=== PATIENT | female | born 1935 | race Caucasian/White ===

== ENCOUNTER 2018-03-09 13:03 | Emergency (ER) | payer OTHER ==
--- OUTSIDE RECORDS SUMMARY | 2018-03-09 13:06 | XMS REPORT | Clinical Summary ---
:1935 Author Organization [facility] Address [address] [place] [address] Care Team Providers Name Role Phone Ana Khan MD Primary Care Provider Allergies Active Allergy Reactions Severity Noted Date Comments Meperidine Other (See Comments) 08/03/2015 HARD TO REMEMBER Does not work Promethazine Other (See Comments) 09/06/2016 shaking Current Medications Prescription Sig. Disp. Refills Start Date End Date Status cholecalciferol, Take by mouth. Active vitamin D3, (VITAMIN D3) 2,000 unit capsule capsule aspirin (ECOTRIN) 81 Take 81 mg by Active MG enteric coated mouth. tablet acetaminophen Take 500 mg by Active (TYLENOL) 500 MG mouth every 6 tablet (six) hours as needed for mild pain. diclofenac (VOLTAREN) Apply 1 Tube 3 05/16/2017 Active 1 % gel topically 4 (four) times a day. Apply 2 Gm to thumb omeprazole (PriLOSEC) Take 20 mg by Active 20 MG capsule mouth daily. chlorpheniramine Take 4 mg by Active (WAL-FINATE) 4 mg mouth every 6 tablet (six) hours as needed for allergies. calcium Take 1 tablet 60 tablet 11 09/19/2017 Active carbonate-vitamin D3 by mouth 2 8 (OYSTER SHELL (two) times a CALCIUM-VIT D3) 500 day with mg-200 unit per meals. tablet furosemide (LASIX) 20 TAKE ONE 60 tablet 2 10/29/2017 Active mg tablet TABLET BY MOUTH DAILY valsartan (DIOVAN) TAKE ONE 90 tablet 3 02/06/2018 Active 160 MG tablet TABLET BY MOUTH DAILY dicyclomine (BENTYL) Take 10 mg by Discontinued 10 MG capsule mouth 4 (four) 8 times a day. furosemide (LASIX) 20 TAKE ONE 60 tablet 3 10/20/2016 Discontinued mg tablet TABLET BY 8 MOUTH DAILY valsartan (DIOVAN) Take 1 tablet 90 tablet 3 02/12/2017 Discontinued 160 MG tablet (160 mg total) 8 by mouth daily. pravastatin Take 1 tablet 90 tablet 3 02/12/2017 Discontinued (PRAVACHOL) 20 MG (20 mg total) 8 tablet by mouth daily. POLYETHYLENE GLYCOL Take by mouth. Discontinued 3350 (MIRALAX ORAL) 8 flecainide (TAMBOCOR) Take 50 mg by Discontinued 50 MG tablet mouth 2 (two) 8 times a day. naproxen sodium Take 220 mg by Discontinued (ALEVE) 220 MG tablet mouth 2 (two) 8 times a day with meals. fluconazole Take 1 tablet 1 tablet 0 09/19/2017 (DIFLUCAN) 150 MG (150 mg total) 7 tablet by mouth once for 1 dose. alendronate (FOSAMAX) Take 1 tab PO 4 tablet 5 09/28/2017 Discontinued 70 MG tablet QAM with a 8 full glass of water on an empty stomach, do NOT take anything else by mouth or lie down for the next 30 min. amoxicillin-pot Take 1 tablet Discontinued clavulanate by mouth 2 8 (AUGMENTIN) 875-125 (two) times a mg per tablet day. GUAIFENESIN/PSEUDOEPH Take by mouth. Discontinued EDRNE HCL (MUCINEX D 8 ORAL) meloxicam (MOBIC) 7.5 Take 1 tablet 30 tablet 0 10/03/2017 Discontinued mg tablet (7.5 mg total) 8 by mouth daily. acetaminophen-codeine Take 1 tablet 30 tablet 0 10/03/2017 (TYLENOL WITH CODEINE by mouth every 7 #3) 300-30 mg per 6 (six) hours tablet as needed for moderate pain for up to 14 days. sulfamethoxazole-trim Take 1 tablet 14 tablet 0 12/04/2017 ethoprim (BACTRIM DS) by mouth 2 8 800-160 mg per tablet (two) times a day for 7 days. Active Problems Problem Noted Date Right shoulder pain 10/05/2017 Internal derangement of right shoulder 10/05/2017 Adhesive capsulitis of right shoulder 10/05/2017 Osteopenia of multiple sites 09/19/2017 Overview: Hasn't been taking the fosamax--didn't remember getting Discussed most recent bone density results. Not exercising currently; had broken her foot april Last Assessment & Plan: Will start the alendronate and let us know how it goes. Fracture of right foot 05/17/2017 Primary osteoarthritis of both knees 05/17/2017 Right foot pain 05/17/2017 Right hand pain 05/17/2017 Arthritis of right hand 05/17/2017 Trigger finger of right thumb 05/17/2017 Paroxysmal atrial fibrillation 02/12/2017 Overview: On tambocor; Dr. Louis Last Assessment & Plan: Continue cardiology follow up. Essential hypertension 09/06/2016 Overview: Patient's blood pressure is at goal No chest pain, shortness of breath, headache, blurry vision, or weakness. Last Assessment & Plan: Hypertension is at goal. Continue current treatment regimen. Blood pressure will be reassessed at the next regular appointment. Vitamin D deficiency Overview: Vitamin d is at goal Last Assessment & Plan: Monitor periodically Ulcerative colitis Overview: Follows with [facility] Hyperlipidemia Overview: On pravastatin Last Assessment & Plan: Lipid abnormalities are at goal. Pharmacotherapy as ordered. Lipids will be reassessed in 6 months. Resolved Problems Problem Noted Date Resolved Date Inflammatory bowel disease 12/04/2017 Overview: Has been on bentyl. Not well controlled--having some BM that she can't control due to sudden onset of the cramping. Last Assessment & Plan: Has gastroenterology--will follow up; has an appointment. Encounters Date Type Specialty Care Team Description 02/05/2018 Refill Cardiology Gunner Louis MD 02/01/2018 Office Visit Gunner Barth Paroxysmal atrial fibrillation (Primary Dx); MD Torres Essential hypertension 01/15/2018 Refill Cardiology Gunner Louis MD 12/19/2017 Orders Only Internal Medicine Brenton Ortega MA Chronic kidney disease, unspecified CKD stage (Primary Dx) 12/11/2017 Lab Lab [facility] Hypercalcemia; MD Jonathan Abnormal kidney function 12/11/2017 Telephone Family Medicine Ana Khan MD 12/10/2017 Orders Only Internal Medicine Brenton Ortega MA Hypercalcemia ( Primary Dx); Abnormal kidney function 12/04/2017 Lab Lab [facility] Essential hypertension MD Jonathan 12/04/2017 Office Visit Internal Medicine Ana Khan Essential hypertension (Primary Dx); MD Jonathan Mixed hyperlipidemia; Paroxysmal atrial fibrillation; Osteopenia of multiple sites; Ingrown toenail 10/27/2017 Refill Cardiology Gunner Louis MD 10/03/2017 Office Visit Orthopedic Surgery Ariel Dolan, Right shoulder pain, unspecified chronicity (Primary Dx); Internal derangement of right shoulder; Adhesive capsulitis of right shoulder 10/03/2017 Telephone Internal Medicine Ana Khan MD 09/28/2017 Orders Only Internal Medicine Brenton Ortega MA 09/19/2017 Office Visit Internal Medicine Ana Khan Osteopenia of multiple sites (Primary Dx); MD Jonathan Dysuria; Vaginal candidiasis 08/22/2017 Telephone Internal Medicine Ana Khan MD 08/15/2017 Telephone Orthopedic Surgery India Dolan RN 08/07/2017 Orders Only Internal Medicine Ana Khan MD 07/20/2017 Orders Only Internal Medicine Jimi Luevano MD 07/06/2017 Office Visit Internal Medicine Ana Khan Essential hypertension (Primary Dx); MD Jonathan Vitamin D deficiency; Inflammatory bowel disease; Paroxysmal atrial fibrillation; Mixed hyperlipidemia; Fracture of right foot, closed, initial encounter 05/16/2017 Office Visit Orthopedic Surgery Ariel Dolan, Right hand pain ( Primary Dx); Right foot pain; Primary osteoarthritis of both knees; Fracture of right foot, closed, initial encounter; Arthritis of right hand; Trigger finger of right thumb 04/25/2017 Lab Lab [facility] Establishing care with new doctor, encounter for; MD Jonathan Hyperlipidemia, unspecified hyperlipidemia type; Vitamin D deficiency; Essential hypertension 04/25/2017 Office Visit Internal Medicine Gerber Wong Right foot pain ( Primary Dx); MD Lizz Essential hypertension; CKD (chronic kidney disease), stage 3 (moderate) 04/25/2017 Ancillary Orders Internal Medicine Gerber Wong MD 04/25/2017 Telephone Family Medicine Kalyani Magdaleno LVN after 03/08/2017 Family History Medical History Relation Name Comments Hypertension Father Stroke Father in his 60s Breast cancer Mother diagnosed at 89 Dementia Mother Leukemia Sister Other Sister hemorrhage Relation Name Status Comments Father Mother Sister Sister Social History Tobacco Use Types Packs/Day Years Used Date Never Smoker Smokeless Tobacco: Never Used Tobacco Cessation: Counseling Given: No Alcohol Use Drinks/Week oz/Week Comments No Sex Assigned at Date Recorded Not on file Last Filed Vital Signs Vital Sign Reading Time Taken Blood Pressure 138/78 02/01/2018 2:54 PM CDT Pulse 77 02/01/2018 2:28 PM CDT Temperature 36.8 C (98.2 F) 12/04/2017 11:45 AM DEVELOPMENT TECHNICAL LEAD Respiratory Rate 16 04/25/2017 12:49 PM CDT Oxygen Saturation 98% 12/04/2017 11:45 AM DEVELOPMENT TECHNICAL LEAD Inhaled Oxygen Concentration - - Weight 69.4 kg (153 lb) 02/01/2018 2:28 PM CDT Height 154.9 cm (5' 1") 02/01/2018 2:28 PM CDT Body Mass Index 28.91 02/01/2018 2:28 PM CDT Plan of Treatment Date Type Specialty Care Team Description 08/02/2018 Office Visit Cardiology Gunner Louis [place] [address] [address] Health Maintenance Due Date Last Done Comments SHINGRIX VACCINE (#1) 1984 ZOSTER VACCINE 1994 PNEUMOCOCCAL POLYSACCHARIDE VACCINE AGE 65 AND OVER 1999 PNEUMOCOCCAL-13 1999 INFLUENZA VACCINE 05/22/2018 Procedures Procedure Name Priority Date/Time Associated Comments Diagnosis RI ARTHROCENTESIS Routine 10/05/2017 9:45 Right shoulder Results for this ASPIR&/INJ MAJOR AM DEVELOPMENT TECHNICAL LEAD pain, unspecified procedure are in JT/BURSA W/O US chronicity the results Internal section. derangement of right shoulder Adhesive capsulitis of right shoulder RI INJECT TENDON Routine 05/17/2017 8:20 Right hand pain Results for this SHEATH/LIGAMENT AM CDT Arthritis of right procedure are in hand the results Trigger finger of section. right thumb after 03/08/2017 Results ECG 12 lead (02/01/2018 1:32 PM) Component Value Ref Range Ventricular rate 73 Atrial rate 73 RI interval 158 QRSD interval 82 QT interval 374 QTC interval 412 P axis 1 37 QRS axis 1 70 T wave axis 43 EKG impression Normal sinus rhythm-Normal ECG-No previous ECGs available- Specimen Performing Laboratory [facility] [address] [place] [address] Renal (12/26/2017 11:00 AM) Specimen Performing Laboratory [facility] [address] [place] [address] Narrative EXAM: Renal ultrasound. INDICATION: Right kidney disease. COMPARISON: CT abdomen pelvis with IV contrast dated 03/19/2015. TECHNIQUE: Multiple grayscale and color Doppler images of the kidneys and bladder were obtained. FINDINGS: Bladder is moderately distended with urine, revealing a bladder wall of normal thickness and appearance. Bilateral ureteral jets are present. Right kidney demonstrates normal cortical echogenicity. However, mild diffuse renal cortical thinning. It remains normal in size, measuring 8.7 x 3.5 x 3.6 cm. Normal parenchymal flow throughout. 0.7 x 0.8 x 0.5 cm ovoid, well-circumscribed, anechoic structure with increased through-transmission no internal flow on color Doppler imaging, located within the lateral aspect of the right kidney inferior pole, compatible with a simple cyst unchanged since prior CT. No hydronephrosis or calculus. Left kidney is also normal in contour, cortical thickness, and cortical echogenicity. It is also normal in size, measuring 9.6 x 3.9 x 4.0 cm. Normal parenchymal flow throughout. 2.0 cm maximal diameter similar-appearing simple cyst exophytic from the lateral aspect of the left kidney inferior pole. Additional 1.0 cm diameter echogenic structure without posterior acoustic shadowing exophytic from the lateral aspect of the left kidney inferior pole without correlate on prior CT. Differential considerations include angiomyolipoma and adjacent echogenic perirenal fat. No Kalfas or hydronephrosis. IMPRESSION: 1. Mild right renal cortical atrophy. 2. 1.0 cm echogenic structure without posterior acoustic shadowing exophytic from the posterior lateral aspect left kidney inferior pole without correlate on prior CT. Overall appearance is most consistent with a angiomyolipoma or echogenic pararenal fat. If indicated, this could be further evaluated with noncontrast CT of the abdomen. 3. Simple renal cysts bilaterally. Procedure Note Hm Interface, Radiology Results Incoming - 12/26/2017 12:14 PM DEVELOPMENT TECHNICAL LEAD EXAM: Renal ultrasound. INDICATION: Right kidney disease. COMPARISON: CT abdomen pelvis with IV contrast dated 03/19/2015. TECHNIQUE: Multiple grayscale and color Doppler images of the kidneys and bladder were obtained. FINDINGS: Bladder is moderately distended with urine, revealing a bladder wall of normal thickness and appearance. Bilateral ureteral jets are present. Right kidney demonstrates normal cortical echogenicity. However, mild diffuse renal cortical thinning. It remains normal in size, measuring 8.7 x 3.5 x 3.6 cm. Normal parenchymal flow throughout. 0.7 x 0.8 x 0.5 cm ovoid, well-circumscribed, anechoic structure with increased through-transmission no internal flow on color Doppler imaging, located within the lateral aspect of the right kidney inferior pole, compatible with a simple cyst unchanged since prior CT. No hydronephrosis or calculus. Left kidney is also normal in contour, cortical thickness, and cortical echogenicity. It is also normal in size, measuring 9.6 x 3.9 x 4.0 cm. Normal parenchymal flow throughout. 2.0 cm maximal diameter similar-appearing simple cyst exophytic from the lateral aspect of the left kidney inferior pole. Additional 1.0 cm diameter echogenic structure without posterior acoustic shadowing exophytic from the lateral aspect of the left kidney inferior pole without correlate on prior CT. Differential considerations include angiomyolipoma and adjacent echogenic perirenal fat. No Kalfas or hydronephrosis. IMPRESSION: 1. Mild right renal cortical atrophy. 2. 1.0 cm echogenic structure without posterior acoustic shadowing exophytic from the posterior lateral aspect left kidney inferior pole without correlate on prior CT. Overall appearance is most consistent with a angiomyolipoma or echogenic pararenal fat. If indicated, this could be further evaluated with noncontrast CT of the abdomen. 3. Simple renal cysts bilaterally. Microscopic Examination (12/11/2017 10:48 AM) Component Value Ref Range WBC, UA 0-5 0 - 5 /hpf RBC, UA 0-2 0 - 2 /hpf Epithelial cells (non renal) 0-10 0 - 10 /hpf Mucus, UA Present Not Estab. Bacteria, UA None seen None seen/Few Specimen Performing Laboratory [facility] Narrative Performed at:[address] [place], [place] [id number] Massotherapist: Milton Chambers MD, Phone:[phone] Urinalysis, automated with microscopy (12/11/2017 10:48 AM) Component Value Ref Range Specific gravity, urine 1.012 1.005 - 1.030 pH, urine 6.0 5.0 - 7.5 Color, UA Yellow Yellow Appearance Clear Clear WBC esterase, urine Negative Negative Protein, UA Negative Negative/Trace Glucose, urine Negative Negative Ketones, UA Negative Negative Occult blood, urine Negative Negative Bilirubin, UA Negative Negative Urobilinogen, UA 0.2 0.2 - 1.0 mg/dL Nitrite, UA Negative Negative Microscopic examination CommentComment: Microscopic follows if indicated. Microscopic examination See below:Comment: Microscopic was indicated and was performed. Specimen Performing Laboratory Blood [facility] Narrative Performed at:[address] [place], [place] [id number] Massotherapist: Milton Chambers MD, Phone:[phone] Ionized calcium (12/11/2017 10:48 AM) Component Value Ref Range Ionized calcium 5.3 4.5 - 5.6 mg/dL Specimen Performing Laboratory [facility] Narrative Performed at:[address] [place], [place] [id number] Massotherapist: Milton Chambers MD, Phone:[phone] Basic metabolic panel (12/11/2017 10:48 AM) Component Value Ref Range Glucose 115 (H) 65 - 99 mg/dL BUN, whole blood 23 8 - 27 mg/dL Creatinine 1.25 (H) 0.57 - 1.00 mg/dL EGFR Non-Afr. Kyrgyz 40 (L) >59 EGFR 46 (L) >59 BUN/creatinine ratio 18 12 - 28 Sodium 141 134 - 144 mmol/L Potassium 4.6 3.5 - 5.2 mmol/L Chloride 101 96 - 106 mmol/L CO2 27 18 - 29 mmol/L Calcium 9.7 8.7 - 10.3 mg/dL Specimen Performing Laboratory [facility] Narrative Performed at:[address] [place], [place] [id number] Massotherapist: Milton Chambers MD, Phone:[phone] Comprehensive metabolic panel (12/04/2017 12:41 PM)Only the most recent of2 resultswithin the time period is included. Component Value Ref Range Glucose 117 (H) 65 - 99 mg/dL BUN, whole blood 27 8 - 27 mg/dL Creatinine 1.28 (H) 0.57 - 1.00 mg/dL EGFR Non-Afr. Kyrgyz 39 (L) >59 mL/min/1.73 EGFR 45 (L) >59 mL/min/1.73 BUN/creatinine ratio 21 12 - 28 Sodium 144 134 - 144 mmol/L Potassium 4.6 3.5 - 5.2 mmol/L Chloride 99 96 - 106 mmol/L CO2 26 18 - 29 mmol/L Calcium 10.4 (H) 8.7 - 10.3 mg/dL Protein 7.3 6.0 - 8.5 g/dL Albumin, S 4.7 3.5 - 4.7 g/dL Globulin, total 2.6 1.5 - 4.5 g/dL Albumin/globulin ratio 1.8 1.2 - 2.2 Total bilirubin 0.3 0.0 - 1.2 mg/dL Alkaline phosphatase 66 39 - 117 IU/L AST 20 0 - 40 IU/L ALT 18 0 - 32 IU/L Specimen Performing Laboratory Blood [facility] Narrative Performed at:[id number] Massotherapist: Milton Chambers MD, Phone:[phone] Large Joint Arthrocentesis (10/05/2017 9:45 AM) Hilda Dolan MD 10/05/20179:45 AM Large Joint Arthrocentesis Consent given by: patient Supporting Documentation Indications: pain Procedure Details Ultrasound guided: no Location: knee - R knee Right side: Needle size (right): 25G. 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 Specimen Performing Laboratory [facility] [address] [place] [address] Narrative EXAMINATION:BONE DENSITY CLINICAL HISTORY:M85.89 Other specified disorders of bone density and structuremultiple sites, osteopenia in the footassess spine and femur.Osteoporosis screening. COMPARISON:None. The results of this study expressed as bone mineral density (BMD) were as follows: AP spine (L1- L4) BMD: 0.983g/cm2 T-Score: -1.7 Percent Change:not applicable Dual Femur (Total Mean): BMD: 0.938g/cm2 T-Score: -0.6 Percent Change:not applicable Impression: Osteopenia lumbar spine. Within normal range femurs [id number] A copy of this scans including a report detailing these results will follow. Note: The world health organization (WHO) has classified the patient's T-score as follows: At or above (-1) as normal Between (-1) to (-2.5) as low (osteopenia) Below (-2.5) as abnormally low (osteoporosis, increased fracture risk) Dual femur FRAX: Risk factors: History of fracture adult 10 year probability of fracture: 1.Major osteoporotic: 16.7 % 2.Hip: 3.3 % 3.Based on dual femur leftneck BMD Procedure Note Interface, Radiology Results Incoming - 09/21/2017 10:42 AM DEVELOPMENT TECHNICAL LEAD EXAMINATION: BONE DENSITY CLINICAL HISTORY: M85.89 Other specified disorders of bone density and structure multiple sites, osteopenia in the foot assess spine and femur. Osteoporosis screening. COMPARISON: None. The results of this study expressed as bone mineral density (BMD) were as follows: AP spine (L1- L4) BMD: 0.983 g/cm2 T-Score: -1.7 Percent Change: not applicable Dual Femur (Total Mean): BMD: 0.938 g/cm2 T-Score: -0.6 Percent Change: not applicable Impression: Osteopenia lumbar spine. Within normal range femurs [id number] A copy of this scans including a report detailing these results will follow. Note: The world health organization (WHO) has classified the patient's T-score as follows: At or above (-1) as normal Between (-1) to (-2.5) as low (osteopenia) Below (-2.5) as abnormally low (osteoporosis, increased fracture risk) Dual femur FRAX: Risk factors: History of fracture adult 10 year probability of fracture: 1. Major osteoporotic: 16.7 % 2. Hip: 3.3 % 3. Based on dual femur left neck BMD Hand/Upper Extremity Injection/Arthrocentesis (05/17/2017 8:20 AM) Narrative Ariel Dolan MD 05/17/20178:20 AM Hand/Upper Extremity Injection/Arthrocentesis Date/Time: 05/17/2017 8:19 AM Consent given by: patient Supporting Documentation Indications: pain Procedure Details Condition: trigger finger Site: R thumb Location: - R thumb A1 Right side: Right thumb medications administered: 6 mg betamethasone acet,sod phos 6 mg/mL; 1 mL lidocaine 10 mg/mL (1 %) XR Foot 3+ Vw Right (05/16/2017 2:30 PM)Only the most recent of2 resultswithin the time period is included. Specimen Performing Laboratory [facility] [address] [place] [address] Narrative Diffuse degenerative changes, osteoporosis and nondisplaced fractures of the third and fourth metacarpal heads, minimally displaced, healing. XR Hand 3+ Vw Right (05/16/2017 2:30 PM) [facility] [address] [place] [address] Narrative Diffuse degenerative changes with degenerative arthritis of the thumb carpometacarpal and metacarpophalangeal joints Vitamin D 25 hydroxy level (04/25/2017 1:41 PM) Component Value Ref Range Vitamin D, 25-hydroxy 73.4 30.0 - 100.0 ng/mL Comment: Vitamin D deficiency has been defined by the [place] [employer] and an Endocrine Society practice guideline as a level of serum 25-OH vitamin D less than 20 ng/mL (1,2). The Endocrine Society went on to further define vitamin D insufficiency as a level between 21 and 29 ng/mL (2). 1. IOM ([place] [employer]). 2010. Dietary reference intakes for calcium and D. [place]: The National Academies Press. 2. Marycruz RICE, [place], Figueroa FERNANDEZ, et al. Evaluation, treatment, and prevention of vitamin D deficiency: an Endocrine Society clinical practice guideline. JCEM. 2010; 96(0):1911-30. Specimen Performing Laboratory Blood [facility] Narrative Performed at:[address] [place], [place] [id number] Massotherapist: Milton Chambers MD, Phone:[phone] CBC with platelet and differential (04/25/2017 1:41 PM) Component Value Ref Range WBC 6.9 3.4 - 10.8 x10E3/uL RBC 4.64 3.77 - 5.28 x10E6/uL HGB 13.6 11.1 - 15.9 g/dL HCT 40.6 34.0 - 46.6 % MCV 88 79 - 97 fL MCH 29.3 26.6 - 33.0 pg MCHC 33.5 31.5 - 35.7 g/dL RDW 14.6 12.3 - 15.4 % Platelet count 226 150 - 379 x10E3/uL Neutrophils 57 % Lymphocytes 32 % Monocytes 10 % Eosinophils 1 % Basophils 0 % Neutrophils, absolute 3.9 1.4 - 7.0 x10E3/uL Lymphocytes, absolute 2.2 0.7 - 3.1 x10E3/uL Monocytes, absolute 0.7 0.1 - 0.9 x10E3/uL Eosinophils, absolute 0.1 0.0 - 0.4 x10E3/uL Basophils, absolute 0.0 0.0 - 0.2 x10E3/uL Immature granulocytes 0 % Immature grans (abs) 0.0 0.0 - 0.1 x10E3/uL Specimen Performing Laboratory [facility] Narrative Performed at:[address] [place], [place] [id number] Massotherapist: Milton Chambers MD, Phone:[phone] Thyroid stimulating hormone (04/25/2017 1:41 PM) Component Value Ref Range TSH 0.991 0.450 - 4.500 uIU/mL Specimen Performing Laboratory [facility] Narrative Performed at:[address] [place], [place] [id number] Massotherapist: Milton Chambers MD, Phone:[phone] Lipid panel (04/25/2017 1:41 PM) Component Value Ref Range Cholesterol 151 100 - 199 mg/dL Triglycerides 131 0 - 149 mg/dL HDL cholesterol 42 >39 mg/dL VLDL cholesterol mary 26 5 - 40 mg/dL LDL cholesterol calculated 83 0 - 99 mg/dL Non-HDL cholesterol 109 0 - 129 mg/dL Specimen Performing Laboratory [facility] Narrative Performed at: - [facility] [id number] Massotherapist: Milton Chambers MD, Phone:[phone] after 03/08/2017 Insurance Payer Benefit Plan / Group Subscriber ID Type Phone Address [employer] MEDICARE [employer] xxxxxxxxx HMO
[2018-03-09] MEDS ORDERED: TETANUS & DIPHTHERIA TOX,ADULT 0.5 ML VIAL ONE (13:45)
[2018-03-09] MEDS ORDERED: IBUPROFEN 200 MG TAB PO ONE (14:04)
[2018-03-09] MEDS ORDERED: IBUPROFEN 400 MG TAB ONE (14:04)
--- NOTE | 2018-03-09 14:40 | RAD REPORT ---
EXAM DESCRIPTION: RAD - Hand Right 3 View - 03/09/2018 2:01 pm CLINICAL HISTORY: Fall, hand pain, laceration to right thumb COMPARISON: None. FINDINGS: Fracture of the distal phalanx thumb is present without distraction or angulation deformit y. There is a small avulsion from the base of the proximal phalanx of thumb. This can be seen with ra dial collateral ligament injury. Patient has underlying degenerative change of the IP joints. No othe r fracture changes identified. There is no dislocation or periosteal reaction noted. No air or forei gn body in the soft tissues. IMPRESSION: Fracture of the distal phalanx right thumb without distraction or angulation deformity. Small bony avulsion from the base of the proximal phalanx of the thumb likely associated with radial collateral ligament injury.
[2018-03-09] MEDS ORDERED: CEFTRIAXONE 1000 MG/VIAL ONE (16:54)
--- NOTE | 2018-03-09 17:29 | ER ---
Nurse's Notes [facility] Name: Lb Jones Age: 82 yrs Sex: Female : 1935 Arrival Date: 03/09/2018 Time: 13:09 Bed 24 [facility] MD: Diagnosis: Displaced fracture of distal phalanx of right thumb Presentation: 03/09 13:13 Presenting complaint: Patient states: mechanical fall from standing, negative loc, la1 laceration to right thumb and pain to left side of face. Transition of care: patient was not received from another setting of care. Onset of symptoms was March 09, 2018. Initial Sepsis Screen: Does the patient meet any 2 criteria? No. Patient's initial sepsis screen is negative. Does the patient have a suspected source of infection? No. Patient's initial sepsis screen is negative. Care prior to arrival: None. 13:13 Method Of Arrival: Wheelchair la1 13:13 Acuity: GURWINDER 3 la1 Historical: - Allergies: 13:14 No Known Allergies; la1 - PMHx: 13:14 Hypertension; la1 - Immunization history:: Adult Immunizations up to date. - Social history:: Smoking status: Patient/guardian denies using tobacco. Screenin:40 Abuse screen: Denies threats or abuse. Denies injuries from another. Nutritional aj1 screening: No deficits noted. Tuberculosis screening: No symptoms or risk factors identified. 18:08 Fall Risk Fall in past 12 months (25 points). No secondary diagnosis (0 pts). No IV (0 aj1 pts). Ambulatory Aid- None/Bed Rest/Nurse Assist (0 pts). Gait- Normal/Bed Rest/Wheelchair (0 pts) Mental Status- Oriented to own ability (0 pts). Total Aaron Fall Scale indicates Low Risk Score (25-44 pts). As available Patient and Family Educated on Fall Prevention Program and strategies. Assessment: 13:40 General: Appears in no apparent distress. uncomfortable, Behavior is calm, cooperative, aj1 appropriate for age. Pain: Complains of pain in palmar aspect of distal phalanx of right thumb Pain does not radiate. Pain currently is 8 out of 10 on a pain scale. Quality of pain is described as pressure, throbbing, Is continuous. Neuro: Level of Consciousness is awake, alert, obeys commands, Oriented to person, place, time, situation, Speech is normal, Facial symmetry appears normal. Cardiovascular: Patient's skin is warm and dry. Respiratory: Airway is patent Respiratory effort is even, unlabored, Respiratory pattern is regular, symmetrical. GI: No signs and/or symptoms were reported involving the gastrointestinal system. : No signs and/or symptoms were reported regarding the genitourinary system. EENT: No signs and/or symptoms were reported regarding the EENT system. Derm: Skin is pink, warm \T\ dry. normal. Musculoskeletal: Range of motion: intact in all extremities. Injury Description: Laceration sustained to palmar aspect of distal phalanx of right thumb is 0.5 to 2.5 cm long, a small amount of bleeding noted at this time. 13:46 Reassessment: Patient requests that we give her tetanus shot later in the visit. aj1 Patient instructed to notify staff when she is ready to get tetanus shot. 14:05 Reassessment: Patient states that her finger is really hurting and she would like some [facility] pain medication. Notified Dr. Crisostomo. 14:31 Reassessment: Patient appears in no apparent distress at this time. No changes from aj1 previously documented assessment. Patient and/or family updated on plan of care and expected duration. Pain level reassessed. Patient is alert, oriented x 3, equal unlabored respirations, skin warm/dry/pink. 15:09 Reassessment: Patient appears in no apparent distress at this time. No changes from aj1 previously documented assessment. Patient and/or family updated on plan of care and expected duration. Pain level reassessed. Patient is alert, oriented x 3, equal unlabored respirations, skin warm/dry/pink. 16:10 Reassessment: Patient appears in no apparent distress at this time. No changes from aj1 previously documented assessment. Patient and/or family updated on plan of care and expected duration. Pain level reassessed. Patient is alert, oriented x 3, equal unlabored respirations, skin warm/dry/pink. 17:22 Reassessment: Patient appears in no apparent distress at this time. No changes from aj1 previously documented assessment. Patient and/or family updated on plan of care and expected duration. Pain level reassessed. Patient is alert, oriented x 3, equal unlabored respirations, skin warm/dry/pink. 18:08 Reassessment: Patient appears in no apparent distress at this time. No changes from aj1 previously documented assessment. Patient and/or family updated on plan of care and expected duration. Pain level reassessed. Patient is alert, oriented x 3, equal unlabored respirations, skin warm/dry/pink. Vital Signs: 13:15 BP 173 / 81; Pulse 81; Resp 19; Temp 97.5(TE); Pulse Ox 100% on R/A; Weight 58.97 kg; la1 Height 5 ft. 3 in. (160.02 cm); 15:09 BP 188 / 82; Pulse 68; Resp 18; Pulse Ox 98% ; aj1 16:10 BP 165 / 88; Pulse 75; Resp 18; Pulse Ox 99% ; aj1 17:10 BP 168 / 85; Pulse 65; Resp 18; Pulse Ox 99% ; aj1 13:15 Body Mass Index 23.03 (58.97 kg, 160.02 cm) la1 ED Course: 13:09 Patient arrived in ED. sb2 13:14 Triage completed. la1 13:15 Arm band placed on left wrist. la1 13:16 Ibis Alvarado, RN is Primary Nurse. aj1 13:19 Deepak Crisostomo MD is Attending Physician. gs 13:40 Patient has correct armband on for positive identification. Bed in low position. Call aj1 light in reach. Side rails up X 1. 13:40 No provider procedures requiring assistance completed. aj1 14:00 X-ray completed. Portable x-ray completed in exam room. Patient tolerated procedure bb2 well. 14:01 Hand Right 3 View XRAY In Process Unspecified. EDMS 16:02 Hand Left 3 View XRAY In Process Unspecified. EDMS 16:50 Wound care: cleaned wound on right thumb with chlorhexidine and normal saline, applied dh3 triple antibiotic cream and a nonadherent bandage. 17:26 Orthoglass splint: Thumb spica splint applied on right forearm. capillary refill less dh3 than 3 seconds. 17:28 Mohan Montiel MD is Referral Physician. gs 18:08 Patient did not have IV access during this emergency room visit. 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 Exp: aj1 07/18/2019. Lot #: [id number]. } Route: IM; Site: left gluteus; 16:47 Follow up: Response: No adverse reaction aj1 14:09 Drug: Ibuprofen 600 mg Route: PO; aj1 16:47 Follow up: Response: No adverse reaction aj1 17:10 Drug: Rocephin (cefTRIAXone) 1 grams Route: IM; Site: right gluteus; aj1 17:20 Follow up: Response: No adverse reaction aj1 Outcome: 17:28 Discharge ordered by MD. whyte 18:09 Discharged to home ambulatory. aj1 18:09 Condition: good 18:09 Discharge instructions given to patient, Instructed on discharge instructions, follow up and referral plans. no drinking with medication, no driving heavy equipment, medication usage, Demonstrated understanding of instructions, follow-up care, medications, Prescriptions given X 2. 18:09 Patient left the ED. aj1 Signatures: Dispatcher [employer] EDMS Ibis Alvarado RN RN aj1 Lg Christianson RN RN la1 Radha Narayanan 3 Deepak Crisostomo MD [facility] Alma Vasquez2
--- NOTE | 2018-03-09 17:29 | EDPHYS ---
Physician Documentation [facility] Name: Lb Jones Age: 82 yrs Sex: Female : 1935 Arrival Date: 03/09/2018 Time: 13:09 Bed 24 Private MD: ED Physician Deepak Crisostomo HPI: 03/09 17:16 This 82 yrs old Female presents to ER via Wheelchair with complaints of Fall gs Injury. 17:16 Details of fall: The patient fell from an upright position. gs 17:21 Onset: The symptoms/episode began/occurred acutely, just prior to arrival. Associated gs injuries: The patient sustained right hand and palmar aspect of distal phalanx of right thumb, dorsal aspect of distal phalanx of left little finger, dorsal aspect of middle phalanx of left little finger and dorsal aspect of proximal phalanx of left little finger. Severity of symptoms: At their worst the symptoms were moderate, in the emergency department the symptoms are unchanged. The patient has not experienced similar symptoms in the past. Historical: - Allergies: 13:14 No Known Allergies; la1 - PMHx: 13:14 Hypertension; la1 - Immunization history:: Adult Immunizations up to date. - Social history:: Smoking status: Patient/guardian denies using tobacco. ROS: 17:21 All other systems are negative. gs Exam: 17:21 Eyes: Pupils equal round and reactive to light, extra-ocular motions intact. Lids and gs lashes normal. Conjunctiva and sclera are non-icteric and not injected. Cornea within normal limits. Periorbital areas with no swelling, redness, or edema. ENT: Nares patent. No nasal discharge, no septal abnormalities noted. Tympanic membranes are normal and external auditory canals are clear. Oropharynx with no redness, swelling, or masses, exudates, or evidence of obstruction, uvula midline. Mucous membranes moist. Neck: Trachea midline, no thyromegaly or masses palpated, and no cervical lymphadenopathy. Supple, full range of motion without nuchal rigidity, or vertebral point tenderness. No Meningismus. Chest/axilla: Normal chest wall appearance and motion. Nontender with no deformity. No lesions are appreciated. Cardiovascular: Regular rate and rhythm with a normal S1 and S2. No gallops, murmurs, or rubs. Normal PMI, no JVD. No pulse deficits. Respiratory: Lungs have equal breath sounds bilaterally, clear to auscultation and percussion. No rales, rhonchi or wheezes noted. No increased work of breathing, no retractions or nasal flaring. Abdomen/GI: Soft, non-tender, with normal bowel sounds. No distension or tympany. No guarding or rebound. No evidence of tenderness throughout. Back: No spinal tenderness. No costovertebral tenderness. Full range of motion. Neuro: Awake and alert, GCS 15, oriented to person, place, time, and situation. Cranial nerves II-XII grossly intact. Motor strength 5/5 in all extremities. Sensory grossly intact. Cerebellar exam normal. Normal gait. 17:21 Constitutional: The patient appears in no acute distress, alert, awake. 17:21 Head/face: Noted is contusion, that is superficial, of the left cheek, minimal tender no deformity. 17:21 Musculoskeletal/extremity: Extremities: noted in the palmar aspect of distal phalanx of right thumb: swelling, avulsion type lac appears superficial, noted in the dorsal aspect of distal phalanx of left little finger: swelling, tenderness, ROM: intact in all extremities, Circulation is intact in all extremities. Sensation intact. Vital Signs: 13:15 BP 173 / 81; Pulse 81; Resp 19; Temp 97.5(TE); Pulse Ox 100% on R/A; Weight 58.97 kg; la1 Height 5 ft. 3 in. (160.02 cm); 15:09 BP 188 / 82; Pulse 68; Resp 18; Pulse Ox 98% ; aj1 16:10 BP 165 / 88; Pulse 75; Resp 18; Pulse Ox 99% ; aj1 17:10 BP 168 / 85; Pulse 65; Resp 18; Pulse Ox 99% ; aj1 13:15 Body Mass Index 23.03 (58.97 kg, 160.02 cm) la1 Procedures: 17:21 Splinting: Splint applied to palmar aspect of distal phalanx of right thumb using Orthoglass splint, applied by tech. Examined by me, post splint application: neurovascular intact, 2+ distal pulses palpable, brisk capillary refill noted, Patient tolerated well. MDM: 13:28 Patient medically screened. 17:21 Differential diagnosis: contusion, fracture, sprain. Data reviewed: vital signs, nurses gs notes. Response to treatment: the patient's symptoms have markedly improved after treatment. ED course: thumb appears superficial lac, will cover with abx in case element of communication with fracture. 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 Exp: aj1 07/18/2019. Lot #: [id number]. } Route: IM; Site: left gluteus; 16:47 Follow up: Response: No adverse reaction aj1 14:09 Drug: Ibuprofen 600 mg Route: PO; aj1 16:47 Follow up: Response: No adverse reaction aj1 17:10 Drug: Rocephin (cefTRIAXone) 1 grams Route: IM; Site: right gluteus; aj1 17:20 Follow up: Response: No adverse reaction [facility] Disposition: 03/09/18 17:28 Discharged to Home. Impression: Displaced fracture of distal phalanx of right thumb. - Condition is Stable. - Discharge Instructions: Contusion, Thumb Fracture. - Prescriptions for Tylenol- Codeine #4 300-60 mg Oral Tablet - take 1 tablet by ORAL route every 6 hours As needed; 10 tablet. Keflex 500 mg Oral Capsule - take 1 capsule by ORAL route every 12 hours for 7 days; 14 capsule. - Medication Reconciliation Form, Thank You Letter, Antibiotic Education, Prescription Opioid Use form. - Follow up: Mohan Montiel MD; When: 2 - 3 days; Reason: Re-evaluation by your physician. Signatures: Dispatcher [employer] Ibis Varela RN RN aj1 Lg Christianson RN RN la1 Deepak Crisostomo MD MD Corrections: (The following items were deleted from the chart) 18:09 17:28 03/09/2018 17:28 Discharged to Home. Impression: Displaced fracture of distal aj1 phalanx of right thumb. Condition is Stable. Forms are Medication Reconciliation Form, Thank You Letter, Antibiotic Education, Prescription Opioid Use. Follow up: Mohan Montiel; When: 2 - 3 days; Reason: Re-evaluation by your physician. gs
--- NOTE | 2018-03-09 18:31 | RAD REPORT ---
EXAM DESCRIPTION: RAD - Hand Left 3 View - 03/09/2018 4:03 pm CLINICAL HISTORY: Fall, hand pain, pain primarily fifth digit COMPARISON: None. FINDINGS: An oblique fracture is present through the base of the fifth middle phalanx ventral margin . No distraction. This does extend to the articular surface. No other acute fracture changes seen. IP joint space narrowing and minimal spurring changes are present. No erosive or destructive process. T he fourth and fifth MCP joints are narrowed but without spurring or erosion. Hardware is in place fro m prior distal radius fracture repair. No foreign body or other soft tissue abnormality. IMPRESSION: Small nondisplaced, nonangulated fracture base of the fifth middle phalanx.
== END 2018-03-09 18:09 | disposition home or self-care (01) ==
LOC: ER 13:03
PROC: 2W3GX1Z Immobilization of Right Thumb using Splint (ICD-10-PCS; principal; 2018-03-09)
DX: S62.521A Displaced fracture of distal phalanx of right thumb, initial encounter for closed fracture (principal); W18.39XA Other fall on same level, initial encounter; Y93.89 Activity, other specified; Y92.9 Unspecified place or not applicable; I10 Essential (primary) hypertension
CPT/HCPCS: 90714; 96372; 99284